=== PATIENT | female | born 1960 | race Caucasian/White ===

== ENCOUNTER → 2016-11-03 | Outpatient (CLI) | payer OTHER ==
[~2016-11-03] MED LIST: AMLO5TAB2 PO; FENO48TA16 PO; MELO-190 PO; PT TO BRING DOS; SIMV20TA3 PO
== END | disposition home or self-care (01) ==
LOC: CFH 13:12
PROVIDERS: ATTEND Dermatology
DX: Z51.81 Encounter for therapeutic drug level monitoring (principal); R05 Cough; L40.0 Psoriasis vulgaris; L40.50 Arthropathic psoriasis, unspecified
CPT/HCPCS: 36415; 71020; 80076; 82977; 86480

== ENCOUNTER → 2017-02-07 | Outpatient (CLI) | payer OTHER ==
[~2017-02-07] MED LIST changes: -MELO-190 PO; +MELO7.5T31 PO
== END | disposition home or self-care (01) ==
LOC: CFH 07:15
PROVIDERS: ATTEND Family Medicine
DX: K80.20 Calculus of gallbladder without cholecystitis without obstruction (principal)
CPT/HCPCS: 76700

== ENCOUNTER → 2017-03-22 | Outpatient (CLI) | payer OTHER ==
[~2017-03-22] MED LIST changes: +ACET-1600 PO; +ALBUTEROL SULFATE 2.5 MG/3 ML NPPB PRN; +ASCO100T5 PO; +CHOL2000 PO; +DIAZEPAM 5 MG/ML, 2ML IVPush PRN; +FENTANYL PF 100 MCG/2ML IV PRN; +HYDROcodone/APAP 7.5-325MG/15ML UDC PO PRN; +HYDROmorphone 1 MG/ML, 1ML IV PRN; +KETOROLAC 30 MG/1 ML IV PRN; +LABETALOL 5MG/ML, 20ML IV PRN; +LISI-167 PO; +MAGNESIUM SULFATE 1 GM/2 ML ONE; +MEPERIDINE/PF 25MG/0.5ML IVPush PRN; +METOCLOPRAMIDE 5 MG/ML, 2ML IV PRN; +MIDAZOLAM 1 MG/ML, 2ML IV PRN; +ONDANSETRON 2MG/ML, 2ML IVPush PRN; +OXYcodone 5 MG/5 ML ORAL.SOL UDC PO PRN; +PLEASE ENTER HEIGHT AND WEIGHT MC SCH; +ROPI0.2537 PO; +morphine SULFATE 10 MG/ML, 1ML IV PRN
[2017-03-22 09:14] LABS: ASPARTATE AMINO TRANSFERASE 34 U/L (15-37); BLOOD UREA NITROGEN 14 mg/dL (7-18)
== END | disposition home or self-care (01) ==
LOC: STAR 08:23
PROVIDERS: ATTEND Surgery
DX: Z01.818 Encounter for other preprocedural examination (principal); K80.70 Calculus of gallbladder and bile duct without cholecystitis without obstruction; I10 Essential (primary) hypertension; Z90.710 Acquired absence of both cervix and uterus
CPT/HCPCS: 36415; 80053

== ENCOUNTER 2017-03-26 09:32 | Day surgery (SDC) | payer OTHER ==
[~2017-03-26] VITALS: Ht 165.1 cm; Wt 93.1 kg
[~2017-03-26 09:32] MED LIST changes: -ALBUTEROL SULFATE 2.5 MG/3 ML NPPB PRN; -DIAZEPAM 5 MG/ML, 2ML IVPush PRN; -FENTANYL PF 100 MCG/2ML IV PRN; -HYDROcodone/APAP 7.5-325MG/15ML UDC PO PRN; -HYDROmorphone 1 MG/ML, 1ML IV PRN; -KETOROLAC 30 MG/1 ML IV PRN; -LABETALOL 5MG/ML, 20ML IV PRN; -MAGNESIUM SULFATE 1 GM/2 ML ONE; -MEPERIDINE/PF 25MG/0.5ML IVPush PRN; -METOCLOPRAMIDE 5 MG/ML, 2ML IV PRN; -MIDAZOLAM 1 MG/ML, 2ML IV PRN; -ONDANSETRON 2MG/ML, 2ML IVPush PRN; -OXYcodone 5 MG/5 ML ORAL.SOL UDC PO PRN; -PLEASE ENTER HEIGHT AND WEIGHT MC SCH; -morphine SULFATE 10 MG/ML, 1ML IV PRN
[2017-03-26 10:09] VITALS: BP 137/72
[2017-03-26] MEDS ORDERED: LACTATED RINGERS 1,000 ML IV SCH (10:09)
[2017-03-26] MEDS ORDERED: LIDOCAINE 1%, 2ML ONE (10:15)
[2017-03-26] MEDS ORDERED: LIDOCAINE 1%, 2ML SQ PRN (10:30)
[2017-03-26] MEDS ORDERED: GLYCOPYRROLATE 0.2MG/1ML, 5ML ONE (10:33)
[2017-03-26] MEDS ORDERED: DEXAMETHASONE 4 MG/ML, 1ML ONE (10:33)
[2017-03-26] MEDS ORDERED: ROCURONIUM 10 MG/ML,10ML ONE (10:33)
[2017-03-26] MEDS ORDERED: PROPOFOL 10 MG/ML, 20ML ONE (10:33)
[2017-03-26] MEDS ORDERED: LIDOCAINE-MPF 2% ,5ML ONE (10:33)
[2017-03-26] MEDS ORDERED: FENTANYL PF 100 MCG/2ML ONE ×3 (10:34→10:35)
[2017-03-26] MEDS ORDERED: MIDAZOLAM 1 MG/ML, 2ML ONE (10:35)
[2017-03-26] MEDS ORDERED: BUPIVACAINE/PF 0.5% ONE (11:16)
[2017-03-26] MEDS ORDERED: EPINEPHRINE 1 MG/ML, 1ML ONE (11:17)
[2017-03-26] MEDS ORDERED: KETOROLAC 30 MG/1 ML ONE (11:37)
[2017-03-26] MEDS ORDERED: CEFOTETAN 2 GM ONE (11:37)
[2017-03-26] MEDS ORDERED: BUPIVACAINE/PF-EPI 0.5% 1:200K IM ONE (11:51)
[2017-03-26] MEDS ORDERED: HYDROmorphone 1 MG/ML, 1ML ONE (13:12)
[2017-03-26] MEDS: HYDROmorphone 1 MG/ML, 1ML IV PRN ×2 (13:18→13:30)
[2017-03-26] MEDS ORDERED: ACETAMINOPHEN 650 MG/20.3 ML UDC ONE (13:22)
[2017-03-26] MEDS ORDERED: OXYcodone 5 MG/5 ML ORAL.SOL UDC ONE (13:23)
[2017-03-26] MEDS ORDERED: HYDROcodone/APAP 7.5-325MG/15ML UDC PO PRN (13:30)
[2017-03-26] MEDS ORDERED: morphine SULFATE 10 MG/ML, 1ML IV PRN (13:30)
[2017-03-26] MEDS ORDERED: ALBUTEROL SULFATE 2.5 MG/3 ML NPPB PRN (13:30)
[2017-03-26] MEDS ORDERED: LABETALOL 5MG/ML, 20ML IV PRN (13:30)
[2017-03-26] MEDS ORDERED: OXYcodone 5 MG/5 ML ORAL.SOL UDC PO PRN (13:30)
[2017-03-26] MEDS ORDERED: MEPERIDINE/PF 25MG/0.5ML IVPush PRN (13:30)
[2017-03-26] MEDS ORDERED: DIAZEPAM 5 MG/ML, 2ML IVPush PRN (13:30)
[2017-03-26] MEDS ORDERED: MIDAZOLAM 1 MG/ML, 2ML IV PRN (13:30)
[2017-03-26] MEDS ORDERED: ACETAMINOPHEN 325 MG TABLET PO PRN (13:30)
[2017-03-26] MEDS ORDERED: METOCLOPRAMIDE 5 MG/ML, 2ML IV PRN (13:30)
[2017-03-26] MEDS ORDERED: FENTANYL PF 100 MCG/2ML IV PRN (13:30)
[2017-03-26] MEDS ORDERED: ONDANSETRON 2MG/ML, 2ML IVPush PRN (13:30)
== END 2017-03-26 16:50 ==
LOC: OUT 09:32
PROVIDERS: ATTEND Surgery
DX: K80.10 Calculus of gallbladder with chronic cholecystitis without obstruction (principal); I10 Essential (primary) hypertension; Z98.890 Other specified postprocedural states; Z90.710 Acquired absence of both cervix and uterus
CPT/HCPCS: 47562; 88304; J0171; J1100; J1170; J1885; J2250; J2704; J3010; J3475; J3490; J7120; S0074

== ENCOUNTER → 2017-11-12 | Outpatient (CLI) | payer OTHER ==
[2017-11-12 13:04] LABS: FREE T4 (FREE THYROXINE) 1.3 ng/dL (0.76-1.46); THYROID STIMULATING HORMONE 0.719 mIU/L (0.358-3.740)
[2017-11-13 13:47] LABS: ANA SCREEN NEGATIVE (Negative)
== END | disposition home or self-care (01) ==
LOC: CFH 11:53
PROVIDERS: ATTEND Internal Medicine Gastroenterology
DX: K76.0 Fatty (change of) liver, not elsewhere classified (principal); K57.30 Diverticulosis of large intestine without perforation or abscess without bleeding; K64.8 Other hemorrhoids; R94.5 Abnormal results of liver function studies; I10 Essential (primary) hypertension; Z90.49 Acquired absence of other specified parts of digestive tract
CPT/HCPCS: 36415; 76705; 82784; 84439; 84443; 86038; 86803; 87340

== ENCOUNTER → 2018-05-01 | Outpatient (CLI) | payer OTHER ==
[~2018-05-01] MED LIST changes: +AMLO-150 PO; -AMLO5TAB2 PO; -ROPI0.2537 PO; +ROPI0.254 PO
[2018-05-01 12:25] LABS: BASOPHILS # (AUTO) 0.05 x10^3/uL (0-0.1); BASOPHILS % (AUTO) 1 % (0-1); EOSINOPHILS # (AUTO) 0.19 x10^3/uL (0-0.4); EOSINOPHILS % (AUTO) 2 % (1-7); LYMPHOCYTES # (AUTO) 2.69 x10^3/uL (1-3.4); LYMPHOCYTES % (AUTO) 29 % (22-44); MD NO; MEAN CORPUSCULAR HEMOGLOBIN 28.4 pg (27.0-34.8); MEAN CORPUSCULAR HGB CONC 32.7 g/dL (32.4-35.8); MEAN CORPUSCULAR VOLUME 86.9 fL (80-100); MEAN PLATELET VOLUME 9.5 fL (7.4-10.4); MONOCYTES # (AUTO) 0.77 x10^3/uL (0.2-0.8); MONOCYTES % (AUTO) 8 % (2-9); NEUTROPHILS % (AUTO) 60 % (42-75); PLATELET COUNT 331 x10^3/uL (130-400); RED BLOOD COUNT 5.19 x10^6/uL (3.82-5.3); RED CELL DISTRIBUTION WIDTH 14.1 % (9.6-15.2)
[2018-05-01 13:01] LABS: ALBUMIN 3.6 g/dL (3.4-5.0); ANION GAP 8 mmol/L (5-15); CALCIUM 8.9 mg/dL (8.5-10.1); CHLORIDE 110 mmol/L (98-107)
[2018-05-01 13:05] LABS: ALANINE AMINOTRANSFERASE 14 U/L (12-78); ALKALINE PHOSPHATASE 93 U/L (45-117); BILIRUBIN,TOTAL 0.5 mg/dL (0.2-1.0); CREATININE 0.78 mg/dL (0.55-1.02); TOTAL PROTEIN 7.2 g/dL (6.4-8.2)
== END | disposition home or self-care (01) ==
LOC: CFH 09:44
PROVIDERS: ATTEND Family Medicine
DX: L40.0 Psoriasis vulgaris (principal); Z79.899 Other long term (current) drug therapy
CPT/HCPCS: 36415; 80053; 85025

== ENCOUNTER → 2018-09-05 | Outpatient (CLI) | payer OTHER ==
[2018-09-05 13:02] LABS: ALANINE AMINOTRANSFERASE 18 U/L (12-78); ALBUMIN 3.5 g/dL (3.4-5.0)
[2018-09-05 13:04] LABS: CHLORIDE 110 mmol/L (98-107)
[2018-09-05 13:11] LABS: ALKALINE PHOSPHATASE 100 U/L (45-117); BILIRUBIN,TOTAL 0.6 mg/dL (0.2-1.0); TOTAL PROTEIN 7.2 g/dL (6.4-8.2)
[2018-09-05 13:13] LABS: ALANINE AMINOTRANSFERASE 18 U/L (12-78); ALBUMIN 3.5 g/dL (3.4-5.0); ALKALINE PHOSPHATASE 97 U/L (45-117); ANION GAP 7 mmol/L (5-15); BILIRUBIN,TOTAL 0.6 mg/dL (0.2-1.0); CHOLESTEROL, TOTAL 170 mg/dL (140-239); CREATININE 0.81 mg/dL (0.55-1.02); HDL CHOL % 25 % (28-40); HDL CHOLESTEROL (DIRECT) 43 mg/dL (40-60); LDL CHOLESTEROL,CALCULATED 90 mg/dL (54-169); LDL/HDL RATIO 2.1 (0.5-3.0); TOTAL PROTEIN 7.1 g/dL (6.4-8.2); TRIGLYCERIDES 187 mg/dL (50-200); VLDL CHOLESTEROL 37 mg/dL (0-25)
[2018-09-05 13:15] LABS: BILIRUBIN, DIRECT < 0.1 mg/dL (0.1-0.2); BILIRUBIN,INDIRECT 0.5 mg/dL (0.0-2.0)
[2018-09-05 13:45] LABS: HEMOGLOBIN A1C 5.7 % (4.2-6.3)
== END | disposition home or self-care (01) ==
LOC: CFH 08:07
PROVIDERS: ATTEND Internal Medicine Gastroenterology
DX: E78.2 Mixed hyperlipidemia (principal); I10 Essential (primary) hypertension; R73.01 Impaired fasting glucose; K76.0 Fatty (change of) liver, not elsewhere classified; R94.5 Abnormal results of liver function studies
CPT/HCPCS: 36415; 80053; 80061; 80076; 82248; 83036